=== PATIENT | male | born 1995 | race Hispanic/Latino ===

== ENCOUNTER 2017-04-19 05:36 | Day surgery (SDC) | payer OTHER ==
[2017-04-19] MEDS ORDERED: ROPIvacaine 0.5% 30 ML INJECTION (J2795 PER 1MG) ×2 (05:37)
[2017-04-19] MEDS ORDERED: dexameTHASONE 10 MG/1 ML VIAL PRES.FREE (J1100) ×2 (05:37)
[2017-04-19] MEDS ORDERED: fentaNYL 100 MCG/2 ML INJECTION (J3010) As Ordered ×4 (06:47→11:07)
[2017-04-19] MEDS ORDERED: MIDAZOLAM INJ 2 MG/2 ML VIAL (J2250) As Ordered ×4 (06:47→11:07)
[2017-04-19] MEDS: LR 1,000 ML IV ×2 (06:48)
[2017-04-19] MEDS: MIDAZOLAM INJ 2 MG/2 ML VIAL (J2250) IV ×2 (07:09)
[2017-04-19] MEDS: fentaNYL 100 MCG/2 ML INJECTION (J3010) IV ×2 (07:09)
[2017-04-19] MEDS: EPINEPHrine 1MG/ML INJ 30ML MD-VIAL As Ordered ×2 (08:25)
[2017-04-19] MEDS: LIDOCAINE 1% MDV 20ML VIAL As Ordered ×2 (10:48)
[2017-04-19] MEDS ORDERED: LR 1,000 ML IV ×4 (11:30)
[2017-04-19] MEDS ORDERED: ONDANSETRON 4MG/2ML VIAL (J2405) IV ×2 (11:30)
[2017-04-19] MEDS ORDERED: fentaNYL 100 MCG/2 ML INJECTION (J3010) IV ×2 (11:30)
[2017-04-19] MEDS ORDERED: GLYCOPYRROLATE INJ 0.2 MG/ML 2 ML VIAL As Ordered ×2 (13:38)
[2017-04-19] MEDS ORDERED: ONDANSETRON 4MG/2ML VIAL (J2405) As Ordered ×2 (13:38)
[2017-04-19] MEDS ORDERED: LIDOCAINE 2% INJ 100 MG/5 ML SDV (FOR ANES.) As Ordered ×2 (13:38)
[2017-04-19] MEDS ORDERED: NEOSTIGMINE 10 MG/10 ML VIAL (J2710) As Ordered ×2 (13:38)
[2017-04-19] MEDS ORDERED: ROCURONIUM BROMIDE 50 MG/5 ML VIAL As Ordered ×2 (13:38)
[2017-04-19] MEDS ORDERED: dexameTHASONE 4 MG/ML 1ML VIAL (J1100) As Ordered ×2 (13:38)
[2017-04-19] MEDS ORDERED: PROPOFOL 200 MG/20 ML VIAL As Ordered ×2 (13:38)
== END 2017-04-19 12:40 | disposition home or self-care (01) ==
LOC: M SDC 05:36
DX: S43.431A Superior glenoid labrum lesion of right shoulder, initial encounter (principal); M94.211 Chondromalacia, right shoulder; M19.011 Primary osteoarthritis, right shoulder; R03.0 Elevated blood-pressure reading, without diagnosis of hypertension; X58.XXXA Exposure to other specified factors, initial encounter; Y93.89 Activity, other specified; Y92.89 Other specified places as the place of occurrence of the external cause; Y99.8 Other external cause status
CPT/HCPCS: 29806